=== PATIENT | male | born 1995 | race Caucasian/White ===

== ENCOUNTER 2025-03-21 19:28 | Inpatient (IN) | payer MEDICAID, OTHER, SELFPAY ==
[2025-03-21 20:00] VITALS: BP 148/80; PULSE 58; RESP 16; TEMP 36.8; O2SAT 99
[2025-03-21 20:32] VITALS: BMI 23.9
[2025-03-21] MEDS: Ibuprofen 600 MG TABLET PO (21:21)
[2025-03-21] MEDS: traZODone HCL 50 MG TABLET PO (21:21)
--- NOTE | 2025-03-22 02:12 | PC.ADMIT ---
At 1945, Guillermo sneed is a 29 year old Greek-Vietnamese male who transferred from [facility] to [facility] on a 12b for treatment of depression with suicidal ideation. He primarily speaks Salvadorean but is able to communicate in Sammarinese. He initially self-presented to the ED due to increased depressive symptoms and passive SI with self-injurous behavior. SIB that involved using a knife to cut himself on his chest and left wrist after getting overwhelmed with stressors at home/arguing with . No prior [facility] admissions or psych history. Hx of chronic migraines and back surgery in 2014 and 2020. Reports anaphylactic reaction to Acetaminophen. No current medical problems or taking scheduled medications. Tox screen was negative. Denies tobacco, ETOH, and other substance use. Upon arrival he is pleasant, calm, cooperative, and easily engaged. Skin check was complete which revealed a self-inflicted cut on the middle of his chest and to his left hand/wrist that are healing open to air No stitches required. No signs/symptoms of infection. On assessment, pt states he is regretful and is unsure why he did this. He reports ?the physical pain got his mind off of the stress?. Denies previous SIB or suicide attempts. During 1:1 he reported being anxious related to outside stressors involving his relationship with his and the unit environment being loud at times. His affect is anxious and withdrawn. Thought process is linear and organized. Speech is quiet and coherent. Reports difficulty eating and sleeping due to racing thoughts/stress. Only eating watermelon and drinking water this week but reports no unintentional weight loss. Complained of 6/10 headache and provider okay?d one time order of Ibuprofen utilized with good effect. No A/VH reported. Currently denies SI with no plan/intent. Reports feeling safe on the unit and is comfortable approaching staff for support. His goal for this admission is to improve his coping skills by attending groups, regulating his sleep and states he is open to starting medications if needed. Hospitalist consult ordered. Placed on 15 minute checks. BRODIE signed for PCP, needs others (Pharmacy and Insurance). Safety tool, treatment plan, and patient belongings to be signed.?
[2025-03-22 07:20] VITALS: BP 121/71; PULSE 123; RESP 16; TEMP 36.6; O2SAT 96
[2025-03-22 08:00] VITALS: PULSE 60
[2025-03-22 08:00] LABS: Alanine Aminotransferase 33 U/L (0-40); Albumin Level 4.2 g/dL (3.5-5.0); Alkaline Phosphatase 64 U/L (39-117); Anion Gap 11 (12-20); Aspartate Amino Transferase 29 U/L (5-37); Bilirubin Total 1.6 mg/dL (0.0-1.0); Blood Urea Nitrogen 18 mg/dL (9-16); Calcium 9.7 mg/dL (8.4-10.2); Carbon Dioxide 25 mmol/L (22-29); Chloride 106 mmol/L (96-108); Cholesterol 187 mg/dL (<200); Creatinine Clr Calc Pharmacy 104.4; Estimated Average Glucose 111 mg/dL; Estimated Glomerular Filt Rate > 60; Glucose Random 92 mg/dL (60-115); HDL Cholesterol 42 mg/dL (>40); Hemoglobin A1c % 5.5 % (<6.0); LDL Cholesterol Calculated 127 mg/dL (<100); Potassium 4.4 mmol/L (3.3-5.1); Sodium 138 mmol/L (135-145); Triglycerides 93 mg/dL (<150)
[2025-03-22 08:17] LABS: Vitamin B12 1259 pg/mL (200-900)
--- NOTE | 2025-03-22 08:53 | P.CONHOSP_ITS ---
History of Present Illness Data of Consult Service Date: 03/22/25 Primary Care Provider: Unknown Physician HPI Reason for consult: Admission H&P Pt is a 29-year-old male with a PMH significant for anxiety and depression?who is admitted to psychiatry unit for increasing depression with thoughts of self-harm due to life and family stressors. Has recently been cutting himself with a razor, including recently on left hand/arm and on chest. Medical consult for admission H&P. ?Pt reports he overall feels well and has no acute medical complaints. Is unsure why he recently cut himself with a razor, though he reports that he felt some ?relief? when he did so. Reports minor left hand pain, though no reduced sensation or range of motion/mobility. Denies any other acute medical complaint. No chest pain/pressure, palpitations. Denies shortness or breath or difficulty breathing. No cough. Denies lightheadedness or dizziness, or severe headache. No nausea, vomiting, abdominal pain. Denies any changes to bowel or bladder habits. Labs reviewed, grossly unremarkable. Vitals with one episode of tachycardia up to 123, though repeat HR 60. Review of Systems 2 Review of Systems: Minor left hand pain, otherwise no acute medical complaints. [facility] Social History Household Members: Spouse and Children Housing: House Do you presently have visiting nurse or other home services: No Patient Tobacco Use Status: Never used Tobacco e-Cigarette/Vaping Use: Never Used Have you been hit, kicked, punched, or otherwise hurt by someone within the past year? If so, by whom?: No Do you feel safe in your current relationship?: Yes Is there a partner from a previous relationship who is making you feel unsafe now?: No Are you made to feel afraid or neglected: No Advance Directives: No Advance Directives Information Provided: Yes Recently lost weight without trying: No How much weight loss: Not applicable Eating poorly because of decreased appetite: No Nutrition screen score: 0 Nutrition Risks: No Nutritional Risk Poor oral hygiene: No Meds Allergies Allergy/AdvReac Type Severity Reaction Status Date / Time acetaminophen (From Tylenol) Allergy Severe Anaphylaxis Verified 03/21/25 20:39 Active Medications: Current Medications Acetaminophen (Acetaminophen 325 Mg Tablet) 650 mg PO Q6H PRN PRN Reason: Headache/Pain, Scale 1-10 Al Hydroxide/Mg Hydroxide (Magnesium Hydrox/Alum Hydrox 30 Ml Oral.Susp) 30 ml PO Q6H PRN PRN Reason: Heartburn/Nausea Magnesium Hydroxide (Milk Of Magnesia 30 Ml Oral.Susp) 30 ml PO DAILY PRN PRN Reason: Constipation Trazodone HCl (Trazodone Hcl 50 Mg Tablet) 50 mg PO BEDTIME MRX1 PRN PRN Reason: Insomnia Last Admin: 03/21/25 21:21 Dose: 50 mg Home Medications ?Medication ?Instructions ?Recorded ?Confirmed ?Last Taken ?Type No Known Home Meds 03/21/25 03/21/25 Un known History Physical Exam 2 Vital Signs and Narrative: Vital Signs: Last Vital Signs Temp 97.8 F 03/22/25 07:20 Pulse 123 H 03/22/25 07:20 Resp 16 03/22/25 07:20 BP 121/71 03/22/25 07:20 Pulse Ox 96 03/22/25 07:20 O2 Del Method Room Air 03/22/25 07:20 BMI result Body Mass Index 23.9 General: AOx3, no acute distress Resp: CTA bilaterally CVS: S1, S2, RRR GI: +BS, NT, no distention Skin: Warm, dry. Superficial 2 cm laceration to left side of chest, no signs of infection. Long superficial laceration on radial aspect of hand, extending to midforearm; no signs of active infection. Neuro: Cranial nerves II-XII grossly intact bilaterally. Motor grossly intact bilaterally Extremities: No edema Psych: Appropriate affect Results Labs 03/22/25 07:20 Labs: Laboratory Results - last 24 hr 03/22/25 07:20 Anion Gap 11 L Estim Creat Clear Calc 104.4 Estimated GFR > 60 Random Glucose 92 Estimat Average Glucose 111 Hemoglobin A1c % 5.5 Calcium 9.7 Total Bilirubin 1.6 H AST 29 ALT 33 Alkaline Phosphatase 64 Total Protein 7.0 Albumin 4.2 Triglycerides 93 Cholesterol 187 LDL Cholesterol, Calc 127 H HDL Cholesterol 42 Vitamin B12 1259 H TSH 1.10 Assessment and Plan (1) Medical clearance for psychiatric admission: Status: Acute Plan Pt is a 29-year-old male with a PMH significant for anxiety and depression?who is admitted to M3 psychiatry unit for increasing depression with thoughts of self-harm due to life and family stressors. Has recently been cutting himself with a razor, including recently on left hand/arm and on chest. Medical consult for admission H&P. Mood disorder Plan as per psychiatry Left hand/wrist and chest laceration Apparently done with a razor in an active self-harm Laceration superficial without sign of infection Keep area clean and dry, no indication for additional treatment or workup at this time Pt otherwise has no acute medical complaints or chronic medical conditions. Will sign off for now. Thank you for allowing us to participate in the care of this pt. Please re-consult if any acute issue or need arises.
--- NOTE | 2025-03-22 16:37 | HO.PSYADMNOT ---
[facility] Date of Service: 03/22/25 Chief Complaint: F33.9 major depression, recurrent episode Sources of Information: patient interviewed, chart reviewed and crisis/core team assessment reviewed HPI Subjective Notes: Section 12B Narrative: 29 yo male from [place], [place]. Australian Israeli, English/Indonesian speaking. This is his first psychiatric hospitalization. Patient transferred from [facility] after he cut himself with a razor blade. He self presented asking for help . He says he had another argument with his after which he got upset and cut himself on the chest and left arm. He didn't want to . He says he has been stressed with his relationship with his at home who he feels has been angry for no reason and when he gets back from work, she is upset and angry at him. This has been a recurring thing. He says they are not communicating well. He felt helpless and didn't know what to do and decided to cut after which he felt relief. He didn't 't know what else to do. He says he wasn't having suicidal thoughts. He thought he would go to the hospital and talk with someone and he ended up hospitalized. He acknowledges some depression and anxiety ongoing, difficulty with sleep, decreased appetite, difficulty concentrating, worthlessness/helplessness. No intent of dying. He says he loves his kids. He has 2 biological children from this relationship and his has 2 children from her previous relationship. He denies psychosis Denies substance use. UTOX negative. Past Psychiatric History: Brief couple's counseling. First inpatient psychiatric hospitalization No individual current/past mental health treatment. Medical Evaluation Reviewed: Yes PMF Narrative: Back surgery. Family History: Denies Social History: Born and raised in [place]. 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 Finished high school. Came to the 2013. . 2 biological children from his current marriage are 2 and 3. His has a 6 and 8 year old. 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 Substance History: Denied. UTOX negative. Trauma History: Denied Diagnostics Vital Signs (24Hr): Vital Signs - 24 hr 03/21/25 20:00 03/22/25 07:20 03/22/25 08:00 Temperature 98.2 F 97.8 F Pulse Rate 58 123 H 60 Respiratory Rate 16 16 Blood Pressure 148/80 H 121/71 Pulse Oximetry 99 96 Oxygen Delivery Method Room Air Room Air BMI result Body Mass Index 23.9 Labs 03/22/25 07:20 Labs: Laboratory Results - last 48 hr 03/22/25 07:20 Sodium 138 Potassium 4.4 Chloride 106 Carbon Dioxide 25 Anion Gap 11 L BUN 18 H Creatinine 1.01 Estim Creat Clear Calc 104.4 Estimated GFR > 60 Random Glucose 92 Estimat Average Glucose 111 Hemoglobin A1c % 5.5 Calcium 9.7 Total Bilirubin 1.6 H AST 29 ALT 33 Alkaline Phosphatase 64 Total Protein 7.0 Albumin 4.2 Triglycerides 93 Cholesterol 187 LDL Cholesterol, Calc 127 H HDL Cholesterol 42 Vitamin B12 1259 H TSH 1.10 Meds/Allergies Meds Home Medications ?Medication ?Instructions ?Recorded ?Confirmed ?Type No Known Home Meds 03/21/25 03/21/25 History Allergies Allergies Allergy/AdvReac Type Severity Reaction Status Date / Time acetaminophen (From Tylenol) Allergy Severe Anaphylaxis Verified 03/21/25 20:39 Mental Status Exam Mental Status Exam Narrative: General appearance: casually appropriate dress. Good hygiene.? Eye contact: WNL. Musculoskeletal: Normal muscle strength/tone, Normal gait and station, No abnormal involuntary movements like tremors, EPS or dyskinesia. No psychomotor agitation or retardation. Normal posture.??? Manner/behavior: cooperative and not guarded Speech:? Fluent, with normal rate, tone and volume. Language: No receptive or expressive language impairment? Mood: stressed. Affect: Anxious. Constricted range, congruent to mood and without lability? Thought process/associations: Linear with no flight of ideas or loose associations.?? Thought content:?No delusions or paranoia. Hallucinations: No auditory, visual or other hallucinations No?flashbacks, nightmares or dissociation? ? Suicidality/self-destructive behavior: none, future oriented, hopeful.? ? Homicidally/violence: none.? Reliability: good.? ? Judgment: preserved.? ? Insight: preserved Cognition: Alert and oriented to time, place and person. Attention, concentration and fund of knowledge are normal.? Impulse control and emotional regulation: preserved. Intelligence estimate: average.? Assessment & Plan Assessment & Plan (1) Adjustment disorder with mixed anxiety and depressed mood: Status: Acute Code(s): F43.23 - Adjustment disorder with mixed anxiety and depressed mood (2) Generalized anxiety disorder: Status: Acute Code(s): F41.1 - Generalized anxiety disorder (3) Non-suicidal self harm as coping mechanism: Status: Acute Code(s): R45.88 - Nonsuicidal self-harm Plan 29 yo male transferred from [facility]. This is his first psychiatric hospitalization. Presented with cutting himself in the context of worsening marital conflict. PLAN: - Admit to inpatient psychiatry - Sec 12. - Collateral information from family and providers. - Milieu treatment and group therapy. - Medications: Patient hesitant about committing to daily medications. He found Trazodone helpful for sleep and willing to continue. Revisit SSRI or Remeron treatment tomorrow. - Social work evaluation. Referrals for individual and family/couples counseling would be helpful. - Disposition planning. Patient educated on: diagnosis Reason for continued inpatient stay Substantial Risk for: harm to self Statement Statement: I have reviewed the history and physical and performed a pertinent examination on my patient. No changes have occurred unless specified. If the History and Physical was not performed prior to admission, the Hospitalist's service will be consulted for completing the admission physical. Time Spent With Patient Time: Total time managing care of this patient today ____ minutes.
[2025-03-22] MEDS: Ibuprofen 600 MG TABLET PO (18:22)
[2025-03-22 20:00] VITALS: BP 140/67; PULSE 64; RESP 16; TEMP 36.6; O2SAT 99
[2025-03-22] MEDS: traZODone HCL 50 MG TABLET PO (21:04)
[2025-03-23 08:00] VITALS: BP 132/67; PULSE 94; RESP 16; TEMP 37.1; O2SAT 96
--- NOTE | 2025-03-23 09:47 | HO.PSYCHPN ---
Subjective Subjective Date of Service: 03/23/25 Reason For Visit: F33.9 major depression, recurrent episode Review of Systems Review of Systems Minor left hand pain, otherwise no acute medical complaints. Mental Status Exam Mental Status Exam Narrative: General appearance: casually appropriate dress. Good hygiene.? Eye contact: WNL. Musculoskeletal: Normal muscle strength/tone, Normal gait and station, No abnormal involuntary movements like tremors, EPS or dyskinesia. No psychomotor agitation or retardation. Normal posture.??? Manner/behavior: cooperative and not guarded Speech:? Fluent, with normal rate, tone and volume. Language: No receptive or expressive language impairment? Mood: stressed. Affect: Anxious. Constricted range, congruent to mood and without lability? Thought process/associations: Linear with no flight of ideas or loose associations.?? Thought content:?No delusions or paranoia. Hallucinations: No auditory, visual or other hallucinations No?flashbacks, nightmares or dissociation? ? Suicidality/self-destructive behavior: none, future oriented, hopeful.? ? Homicidally/violence: none.? Reliability: good.? ? Judgment: preserved.? ? Insight: preserved Cognition: Alert and oriented to time, place and person. Attention, concentration and fund of knowledge are normal.? Impulse control and emotional regulation: preserved. Intelligence estimate: average.? Diagnostics Vital Signs (24Hr): Vital Signs - 24 hr 03/22/25 20:00 Temperature 97.8 F Pulse Rate 64 Respiratory Rate 16 Blood Pressure 140/67 H Pulse Oximetry 99 Oxygen Delivery Method Room Air BMI result Body Mass Index 23.9 Labs 03/22/25 07:20 Labs: Laboratory Results - last 48 hr 03/22/25 07:20 Sodium 138 Potassium 4.4 Chloride 106 Carbon Dioxide 25 Anion Gap 11 L BUN 18 H Creatinine 1.01 Estim Creat Clear Calc 104.4 Estimated GFR > 60 Random Glucose 92 Estimat Average Glucose 111 Hemoglobin A1c % 5.5 Calcium 9.7 Total Bilirubin 1.6 H AST 29 ALT 33 Alkaline Phosphatase 64 Total Protein 7.0 Albumin 4.2 Triglycerides 93 Cholesterol 187 LDL Cholesterol, Calc 127 H HDL Cholesterol 42 Vitamin B12 1259 H TSH 1.10 Medications Medications Current Medications Al Hydroxide/Mg Hydroxide (Magnesium Hydrox/Alum Hydrox 30 Ml Oral.Susp) 30 ml PO Q6H PRN PRN Reason: Heartburn/Nausea Ibuprofen (Ibuprofen 600 Mg Tablet) 600 mg PO Q8H PRN PRN Reason: Pain, Moderate(Pain Scale 4-6) Last Admin: 03/22/25 18:22 Dose: 600 mg Magnesium Hydroxide (Milk Of Magnesia 30 Ml Oral.Susp) 30 ml PO DAILY PRN PRN Reason: Constipation Trazodone HCl (Trazodone Hcl 50 Mg Tablet) 50 mg PO BEDTIME MRX1 PRN PRN Reason: Insomnia Last Admin: 03/22/25 21:04 Dose: 50 mg Allergies Allergies Allergy/AdvReac Type Severity Reaction Status Date / Time acetaminophen (From Tylenol) Allergy Severe Anaphylaxis Verified 03/21/25 20:39 Assessment & Plan Assessment & Plan (1) Adjustment disorder with mixed anxiety and depressed mood: Status: Acute Code(s): F43.23 - Adjustment disorder with mixed anxiety and depressed mood (2) Generalized anxiety disorder: Status: Acute Code(s): F41.1 - Generalized anxiety disorder (3) Non-suicidal self harm as coping mechanism: Status: Acute Code(s): R45.88 - Nonsuicidal self-harm Plan 29 yo male transferred from [facility]. This is his first psychiatric hospitalization. Presented with cutting himself in the context of worsening marital conflict. PLAN: - Admit to inpatient psychiatry - Sec 12. - Collateral information from family and providers. - Milieu treatment and group therapy. - Medications: Patient hesitant about committing to daily medications. He found Trazodone helpful for sleep and willing to continue. Revisit SSRI or Remeron treatment tomorrow. - Social work evaluation. Referrals for individual and family/couples counseling would be helpful. - Disposition planning. Time Spent With Patient Time: Total time managing care of this patient today ____ minutes.
[2025-03-23] MEDS: Ibuprofen 600 MG TABLET PO (13:25)
--- NOTE | 2025-03-23 17:37 | PM.PSYDC ---
DS: Providers Provider Date of Service: 03/23/25 Date of admission: 03/21/25 19:28 Date of discharge: 03/23/25 Primary care physician: Unknown Physician Admitting clinician: Mac House Attending physician on admission: Mac House Consults: 03/21/25 19:55 Consult to Hospitalist Routine Comment: Consulting Provider: [facility] Reason For Exam: medical H&P Attending physician on discharge: Mac House Discharging clinician: Mac House DS: Diagnosis Discharge Diagnosis (1) Adjustment disorder with mixed anxiety and depressed mood: Status: Acute (2) Generalized anxiety disorder: Status: Acute (3) Non-suicidal self harm as coping mechanism: Status: Acute (4) Depressive disorder, not elsewhere classified: Status: Acute DS: Medications Discharge Medications Home Medications: Previous Rx's ?Medication ?Instructions ?Recorded ibuprofen 600 mg tablet 600 mg PO Q8H PRN Pain, 03/23/25 Moderate(Pain Scale 4-6) #0 tabs trazodone 50 mg tablet 50 mg PO BEDTIME MRX1 PRN Insomnia 03/23/25 #14 tabs Mental Status Exam Mental Status Exam Narrative: General appearance: casually appropriate dress. Good hygiene.? Eye contact: WNL. Musculoskeletal: Normal muscle strength/tone, Normal gait and station, No abnormal involuntary movements like tremors, EPS or dyskinesia. No psychomotor agitation or retardation. Normal posture.??? Manner/behavior: cooperative and not guarded Speech:? Fluent, with normal rate, tone and volume. Language: No receptive or expressive language impairment? Mood: better. Affect: Anxious. Constricted range, congruent to mood and without lability? Thought process/associations: Linear with no flight of ideas or loose associations.?? Thought content:?No delusions or paranoia. Hallucinations: No auditory, visual or other hallucinations No?flashbacks, nightmares or dissociation? ? Suicidality/self-destructive behavior: none, future oriented, hopeful.? ? Homicidally/violence: none.? Reliability: good.? ? Judgment: preserved.? ? Insight: preserved Cognition: Alert and oriented to time, place and person. Attention, concentration and fund of knowledge are normal.? Impulse control and emotional regulation: preserved. Intelligence estimate: average.? Data Data Completed and Pending Completed studies during hospitalization [Text1]: 03/22/25 07:20 Sodium 138 Potassium 4.4 Chloride 106 Carbon Dioxide 25 Anion Gap 11 L BUN 18 H Creatinine 1.01 Estim Creat Clear Calc 104.4 Estimated GFR > 60 Random Glucose 92 Estimat Average Glucose 111 Hemoglobin A1c % 5.5 Calcium 9.7 Total Bilirubin 1.6 H AST 29 ALT 33 Alkaline Phosphatase 64 Total Protein 7.0 Albumin 4.2 Triglycerides 93 Cholesterol 187 LDL Cholesterol, Calc 127 H HDL Cholesterol 42 Vitamin B12 1259 H TSH 1.10 DS: Summary Hospital Course Hospital Course: Date of Admission: 03/22/25 Chief Complaint: F33.9 major depression, recurrent episode Sources of Information: patient interviewed, chart reviewed and crisis/core team assessment reviewed HPI Subjective Notes: Section 12B Narrative: 29 yo male from [place], [place]. Faroese Lebanese, Arabic/Malaysian speaking. This is his first psychiatric hospitalization. Patient transferred from [facility] after he cut himself with a razor blade. He self presented asking for help . He says he had another argument with his after which he got upset and cut himself on the chest and left arm. He didn't want to . He says he has been stressed with his relationship with his at home who he feels has been angry for no reason and when he gets back from work, she is upset and angry at him. This has been a recurring thing. He says they are not communicating well. He felt helpless and didn't know what to do and decided to cut after which he felt relief. He didn't 't know what else to do. He says he wasn't having suicidal thoughts. He thought he would go to the hospital and talk with someone and he ended up hospitalized. He acknowledges some depression and anxiety ongoing, difficulty with sleep, decreased appetite, difficulty concentrating, worthlessness/helplessness. No intent of dying. He says he loves his kids. He has 2 biological children from this relationship and his has 2 children from her previous relationship. He denies psychosis Denies substance use. UTOX negative. Past Psychiatric History: Brief couple's counseling. First inpatient psychiatric hospitalization No individual current/past mental health treatment. Medical Evaluation Reviewed: Yes PMF Narrative: Back surgery. Family History: Denies Social History: Born and raised in [place]. 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 Finished high school. Came to the 2013. . 2 biological children from his current marriage are 2 and 3. His has a 6 and 8 year old. 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 Substance History: Denied. UTOX negative. Trauma History: Denied Patient was admitted to the unit. He was observed and was calm, cooperative with treatment and was respectful to staff and peers. He from the beginning of the hospitalization was consistent and clear that he had no intent of harming himself when he cut himself and said after he cut himself superficially, he went on [facility] to see what he should do and the advice was that he should go to the hospital so he self presented to the ED. His intention was to go and talk to someone and see about receiving some psychological support. He was not feeling in danger and didn't want to end his life. He acknowledged during the admission interview ongoing stress with his marriage related to his being herself overwhelmed with the care of 4 young children and him working a lot. He acknowledged he bottles things inside. He was remorseful about his self harm. On 03/23, he was advocating for discharge. He explained the family has a deadline and have to move out of their apartment into a new place by tomorrow. He was worried about the financial implications if he should stay at the hospital longer. His was contacted using an bottom crane operator and she corroborated the same information. She reported that she was not worried about the patient's mental state prior to this incident. He has no history of suicide attempts, he is usually calm. She had a visit with him earlier in the day and she reports they talked about receiving individual and couples' therapy. She denies she felt in any danger and there were no fire arms in the house. She and the patient were future oriented and the patient was interested and advocating for continued follow up with PCP and getting therapy for himself and him and his together. He had no SI/HI/AVH and he had good insight and judgment. He was future oriented and discussing his plans for moving to their new place tomorrow. Patient was ambivalent about starting and committing to daily antidepressant/anti-anxiety SSRI treatment but was amenable to taking Trazodone as needed to help with sleep which he had found helpful when he took at the hospital. Status at Discharge Functional status at discharge: independent ambulation Overall status at discharge: patient is back to baseline Time Spent with Patient Time attestation: Total time managing care of this patient today _60__ minutes. Time spent: Greater than 30 minutes Discharge Plan Discharge Anticipated Discharge Date/Time: 03/23/25 15:32 Patient Disposition: Home, Self-Care Discharge Diagnosis: Adjustment disorder with anxious and depressed mood Generalized anxiety disorder Referrals: Rajwinder Collins [Other] - 04/15/25 8:40 am Referral Note: Per patient report follow up appointment with PCP scheduled 04/15/25 0840 Physician,Unknown J [Primary Care Provider, Medical] - 1 Week Discharge Medications: New trazodone 50 mg Tablet 50 mg PO BEDTIME MRX1 PRN (Reason: Insomnia) Qty: 14 0RF ibuprofen 600 mg Tablet 600 mg PO Q8H PRN (Reason: Pain, Moderate(Pain Scale 4-6)) Qty: 0 0RF Discharge Orders: Discharge Order (Routine); Ordered 03/23/25 Ordered By: Mac House Diet: Regular diet Activity on Discharge: As tolerated Stand Alone Forms: Patient Portal Discharge page, Community Support Print Language: Malaysian Care Plan Goals: Identify healthy coping strategies and skills for distress tolerance Improve communication and relationship within the family unit Health Concerns: Non suicidal self injury Insomnia Anxiety Marital relationship difficulties Plan of Treatment: Recommend follow up with individual therapy and couples/family therapy. Assessment: Patient presented to the hospital with non-suicidal self injury. They were able to reflect on their stressors and identified the need for more psychological support and family counseling. The patient had no suicidal ideation and no homicidal ideation. There was no evidence of psychosis. Patient requested release due to impending move to a new place. He felt safe about discharge. His was contacted for collateral information and was comfortable with the discharge. Discharge Date/Time: 03/23/25 16:40
== END 2025-03-23 16:40 | disposition home or self-care (01) | DRG 755 ==
PROVIDERS: Social Worker; Admitting Provider Psychiatry & Neurology Psychiatry; Visit Provider Psychiatry & Neurology Psychiatry
DX: F43.23 Adjustment disorder with mixed anxiety and depressed mood (principal); R45.851 Suicidal ideations; F41.1 Generalized anxiety disorder; R45.88 Nonsuicidal self-harm; Z63.0 Problems in relationship with spouse or partner; Z91.52 Personal history of nonsuicidal self-harm
CPT/HCPCS: 36415; 80053; 80061; 82607; 83036; 84443

== ENCOUNTER → 2025-03-21 19:28 | Outpatient (BNV) | payer SELFPAY | PROVIDERS: Admitting Provider Psychiatry & Neurology Psychiatry; Visit Provider Student in an Organized Health Care Education/Training Program | DX: Z00.8 Encounter for other general examination (principal) | CPT/HCPCS: 99222 ==

== ENCOUNTER → 2025-03-21 19:28 | Outpatient (BNV) | payer SELFPAY | PROVIDERS: Admitting Provider Psychiatry & Neurology Psychiatry; Visit Provider Psychiatry & Neurology Psychiatry | DX: F43.23 Adjustment disorder with mixed anxiety and depressed mood (principal); F41.1 Generalized anxiety disorder; R45.88 Nonsuicidal self-harm; F32.89 Other specified depressive episodes | CPT/HCPCS: 99223; 99239 ==